=== PATIENT | male | born 1945 | race Caucasian/White ===

== ENCOUNTER → 2017-02-25 | Outpatient (CLI) | payer OTHER | LOC: CAT 09:46 | DX: R91.1 Solitary pulmonary nodule (principal) ==

== ENCOUNTER → 2019-09-19 | Outpatient (CLI) | payer OTHER | LOC: SJCVC 14:28 | PROVIDERS: ATTEND Internal Medicine Cardiovascular Disease | DX: I21.19 ST elevation (STEMI) myocardial infarction involving other coronary artery of inferior wall (principal); I45.10 Unspecified right bundle-branch block; I10 Essential (primary) hypertension; I25.10 Atherosclerotic heart disease of native coronary artery without angina pectoris; E78.00 Pure hypercholesterolemia, unspecified; I44.1 Atrioventricular block, second degree; R94.31 Abnormal electrocardiogram [ECG] [EKG] ==

== ENCOUNTER → 2019-09-26 | Outpatient (CLI) | payer OTHER | LOC: SJCVC 11:39 | PROVIDERS: ATTEND Internal Medicine Cardiovascular Disease | DX: Z51.81 Encounter for therapeutic drug level monitoring (principal) ==

== ENCOUNTER → 2020-06-25 | Outpatient (CLI) | payer OTHER ==
[~2020-06-25] MED LIST: ASA81BEC PO; CENTRUM SILVER1 EAC4 PO; FISH OIL 1,0001 EAC9 PO; FLONASE 0.05%50 MCG NARES; LIPITOR 10 MG10 M1 PO; LISINOPRIL10 MG PO; MELATONIN10 M3 PO; VALERIAN ROOT500 MG PO; XARELTO20 MG PO
== END ==
LOC: SJCVCIMAG 09:14
PROVIDERS: ATTEND Internal Medicine Cardiovascular Disease
DX: I08.3 Combined rheumatic disorders of mitral, aortic and tricuspid valves (principal); R94.31 Abnormal electrocardiogram [ECG] [EKG]; I45.10 Unspecified right bundle-branch block; I11.9 Hypertensive heart disease without heart failure; I49.9 Cardiac arrhythmia, unspecified; I25.10 Atherosclerotic heart disease of native coronary artery without angina pectoris; R93.1 Abnormal findings on diagnostic imaging of heart and coronary circulation; E78.00 Pure hypercholesterolemia, unspecified; I44.1 Atrioventricular block, second degree; I48.92 Unspecified atrial flutter; J44.9 Chronic obstructive pulmonary disease, unspecified; G47.33 Obstructive sleep apnea (adult) (pediatric); Z79.899 Other long term (current) drug therapy; Z87.891 Personal history of nicotine dependence

== ENCOUNTER → 2020-07-02 | Outpatient (CLI) | payer OTHER | LOC: SJCVC 15:48 | PROVIDERS: ATTEND Internal Medicine Cardiovascular Disease | DX: R94.31 Abnormal electrocardiogram [ECG] [EKG] (principal); I45.10 Unspecified right bundle-branch block; I48.3 Typical atrial flutter; G47.33 Obstructive sleep apnea (adult) (pediatric); I10 Essential (primary) hypertension; E78.00 Pure hypercholesterolemia, unspecified; I25.10 Atherosclerotic heart disease of native coronary artery without angina pectoris; J44.9 Chronic obstructive pulmonary disease, unspecified; Z99.89 Dependence on other enabling machines and devices; Z79.899 Other long term (current) drug therapy; Z87.891 Personal history of nicotine dependence ==

== ENCOUNTER → 2020-07-11 | Outpatient (CLI) | payer OTHER | LOC: LAB 10:05 | PROVIDERS: ATTEND Internal Medicine Cardiovascular Disease | DX: Z01.812 Encounter for preprocedural laboratory examination (principal); Z20.822 Contact with and (suspected) exposure to COVID-19 ==

== ENCOUNTER 2020-07-16 06:31 | Observation (INO) | payer OTHER ==
[~2020-07-16] VITALS: Ht 167.6 cm; Wt 84.4 kg
--- NOTE | ~2020-07-16 | P ---
[facility] [place] [address] PROCEDURE REPORT Name: SHIRLEY TORRES Room #: 202-P [facility] Bandar Adamson#: [id number] Admission: 07/16/20 Attend Phys: Shun Johnson MD Discharge: 07/17/20 Date of : 49 Report #: [id number] THIS REPORT FOR: cc: Maldonado Rodriguez MD, Christopher B. MD Couchonnal, Luis F. MD ~ PREOPERATIVE DIAGNOSES: 1. Atrial flutter. 2. High degree AV block. POSTOPERATIVE DIAGNOSES: 1. Atrial flutter. 2. Sick sinus syndrome. 3. Complete heart block. PROCEDURES PERFORMED: 1. SVT ablation, CPT code 28064. 2. EP with left atrial pacing and recording, CPT code 55847. 3. Intracardiac echo, CPT code 50069. 4. 3D mapping, CPT code 47656. 5. Dual-chamber pacemaker implantation, CPT code 87302. HISTORY: The patient is a 75-year-old with cavotricuspid isthmus dependent flutter as well as a bradycardic ventricular response on no AV shoaib blocking agents. He is here for ablation of his atrial flutter and possible pacemaker implantation if there is evidence of a significant AV shoaib disease. ANESTHESIA: The patient underwent MAC anesthesia with no anesthesia related complications. DESCRIPTION OF PROCEDURE: The patient underwent informed consent. We discussed the details of the procedure including the risks, which include but not limited to bleeding, vascular damage, stroke, FL, damage to sun'aq conduction system as well as pneumothorax and infection. He understood these risks and is willing to proceed. The patient was brought to EP laboratory in a fasting, non-sedated state and prepped and draped in sterile fashion. I injected lidocaine at the right groin region and then obtained access to the right femoral vein x 3. I placed an 8, 9 and 7-Vincentian short sheath using the modified Seldinger technique. Next, under fluoroscopy, a decapolar catheter was placed in the coronary sinus and ICE catheter was placed in the right atrium. At baseline, the patient was in atrial flutter with an atrial cycle length of 360 milliseconds in a proximal to distal activation along the decapolar catheter. The ventricular cycle length was 1470 milliseconds with a QRS duration of 145 milliseconds with a right bundle branch morphology, QT interval of 530 milliseconds and an HV interval of 63 [facility] [address] [place] [address] PROCEDURE REPORT Name: SHIRLEY TORRES Room #: 202-P [facility] Bandar Adamson#: [id number] Admission: 07/16/20 Attend Phys: Shun Johnson MD Discharge: 07/17/20 Date of : 49 Report #: [id number] milliseconds. This was suggestive of advanced Infra-Hisian disease. Next, I placed an 8 mm ablation catheter into the right atrium and I created a detailed 3D geometry of the right atrium and an activation map of the atrial flutter. This activation map was consistent with a counterclockwise typical atrial flutter. Using intracardiac ultrasound, I created a detailed 3D geometry of the cavotricuspid isthmus and I also visualized the left atrium, which showed two left and two right pulmonary veins and a thin interatrial septum: There was no pericardial effusion either. As such, a diagnosis of typical atrial flutter was made. Next SVT ablation was performed. I placed a RAMP sheath and placed my 8 mm ablation catheter into this RAMP sheath and ablation was performed at 70 collazo and 60 degrees at 6 o'clock along the cavotricuspid isthmus. Of note, there was very fractionated atrial electrograms throughout this isthmus and with ablation, the atrial flutter terminated after about 45 seconds of ablation and I was still predominantly on the proximal third of the isthmus. I continued ablating until I fell into the inferior vena cava. I then checked and there was evidence of bidirectional block with transisthmus conduction time of 225 milliseconds. POST-ABLATION TESTING: Post-ablation testing demonstrated persistence of bidirectional block for 30 minutes. An EP study was performed and in sinus rhythm, the sinus cycle length was 1360 milliseconds. The patient did have some evidence of sick sinus syndrome with long sinus node recovery times when it come off atrial pacing. The QRS duration was 145 milliseconds, the QT interval was 530 milliseconds and with atrial burst pacing, there was evidence of AV block at 700 milliseconds. Based on these findings of complete heart block, I decided to proceed with pacemaker implantation. DUAL-CHAMBER PACEMAKER IMPLANTATION: We pulled catheters and sheaths from his right groin and obtained hemostasis and then the patient underwent a venogram showing patency of left axillary vein and the patient received IV antibiotics. Next, I injected lidocaine at the incision site. An incision was made, pocket was created over the prepectoral fascia and access was obtained twice to left axillary vein using the extrathoracic approach. Sheaths were positioned using the modified Seldinger technique and then leads were positioned into the right ventricular mid septum and right atrial appendage, both with adequate pacing and sensing thresholds. The device was connected to the leads. Tug test performed. Leads were sutured to the prepectoral fascia using Ethibond suture and then the pocket was irrigated with vancomycin. The pocket was closed in 2 layers. Surgical glue was placed to outer skin layer. The patient awoke neurologically and hemodynamically intact. No complications and no significant bleeding. The implanted pacemaker was Medtronic model # W3DR01, serial #[id number]. Atrial lead was a 5076, 52 cm, serial #[id number], RV lead was a 5076, 58 cm, serial #[id number]. The P waves were 2 millivolts, pacing impedance 570 ohms, pacing threshold 0.7 volts at 0.4 milliseconds. RV lead demonstrated R waves of 8 [facility] [address] [place] [place] [address] PROCEDURE REPORT Name: SHIRLEY TORRES Room #: 202-P [facility] Bandar Adamson#: [id number] Admission: 07/16/20 Attend Phys: Shun Johnson MD Discharge: 07/17/20 Date of : 49 Report #: [id number] millivolts, pacing impedance of 684 ohms, pacing threshold 0.7 volts at 0.4 milliseconds. The device was programmed to the DDDR 60-130 mode. CONCLUSIONS: 1. Successful ablation of cavotricuspid isthmus dependent flutter with evidence of bidirectional block. 2. Evidence of sick sinus syndrome. 3. Evidence of severe AV shoaib and Infra-Hisian conduction disease. 4. Successful dual-chamber pacemaker implantation. 5. Satisfactory atrial and ventricular pacing and sensing thresholds. By: 1346 [id number] Shun Johnson MD /nt
[2020-07-16] MEDS ORDERED: LISINOPRIL10 MG PO (07:10)
[2020-07-16] MEDS ORDERED: XARELTO20 MG PO (07:11)
[2020-07-16] MEDS ORDERED: LIPITOR 10 MG10 M1 PO (07:11)
[2020-07-16] MEDS ORDERED: ASA81BEC PO (07:11)
[2020-07-16] MEDS ORDERED: CENTRUM SILVER1 EAC4 PO (07:12)
[2020-07-16] MEDS ORDERED: FISH OIL 1,0001 EAC9 PO (07:12)
[2020-07-16] MEDS ORDERED: VALERIAN ROOT500 MG PO (07:13)
[2020-07-16] MEDS ORDERED: MELATONIN10 M3 PO (07:13)
[2020-07-16] MEDS ORDERED: FLONASE 0.05%50 MCG NARES (07:14)
[2020-07-16 07:32] VITALS: BP 169/72
[2020-07-16 07:34] LABS: ABSOLUTE NEUTROPHILS 3.8 thou/uL (1.4-8.2); BASOPHILS 0.7 % (0.0-2.0); EOSINOPHILS 6.3 % (0.0-3.0); HEMATOCRIT 42.9 % (42.0-52.0); HEMOGLOBIN 14.3 gm/dL (14.0-18.0); LYMPHOCYTES 27.1 % (24.0-44.0); MCH 29.4 pg (26.0-34.0); MCHC 33.3 g/dL (28.0-37.0); MCV 88.4 fL (80.0-100.0); MONOCYTES 10.2 % (1.0-8.0); PLATELET COUNT 267 thou/uL (150-400); POLYS 55.7 % (36.0-66.0); RBC 4.85 mil/uL (4.50-6.00); RDW 12.9 % (10.5-14.5); WBC 6.8 thou/uL (4.0-11.0)
[2020-07-16 07:46] LABS: POTASSIUM 3.5 mmol/L (3.5-5.1)
[2020-07-16 07:53] LABS: TOTAL BILIRUBIN 0.8 mg/dL (0.2-1.0); TOTAL PROTEIN 8.1 g/dL (6.4-8.2)
[2020-07-16 08:09] LABS: APTT 25.7 Seconds (24.5-32.8); INR 1.1; PROTIME 11.4 Seconds (9.3-11.4)
--- NOTE | 2020-07-16 17:56 | NUR ---
PT. UP ON UNIT OFF BEDREST AT 8PM TONIGHT. RIGHT GROIN SITE IS VENOUS AND NO HEMATOMA, SOFT TO TOUCH. DENIES ANY CHEST PAIN. PACEMAKER SITE HAS A DRESSING ON IT, C,D,I . PACING IS 100% ATRIAL, 80% NOW RATE CONTROLLED AND NO ECTOPY NOTED.
[2020-07-16 19:14] VITALS: BP 128/65
[2020-07-16 23:06] VITALS: BP 172/77
[2020-07-17 04:00] VITALS: BP 150/75
--- NOTE | 2020-07-17 04:50 | NUR ---
PT S/P PACEMAKER YESTERDAY. ALERT AND ORIENTED. VPACED ON THE MONITOR. DENIES PAIN. VITALS STABLE. D/C THIS AM, WILL CONTINUE TO MONITOR.
[2020-07-17 08:21] VITALS: BP 142/66
[2020-07-17 10:20] VITALS: BP 142/66
--- NOTE | 2020-07-17 12:05 | NUR ---
1000- D/C PAPER WORK GIVEN TO PT WELL DRUG INFORMATION SHEET AND PACEMAKER CARE SHEET. PT WAS ALREADY GIVEN SAMPLES OF XERELTO FROM [facility].
--- NOTE | 2020-07-18 13:48 | D ---
[facility] [place] [address] DISCHARGE SUMMARY Name: SHIRLEY TORRES Room #: 202-P [facility] Bandar Adamson#: [id number] Admission: 07/16/20 Attend Phys: Shun Johnson MD Discharge: 07/17/20 Date of : 49 Report #: [id number] THIS REPORT FOR: cc: Maldonado Rodriguez MD, Christopher B. MD Couchonnal,Shun Tan MD ~ DATE OF SERVICE: 07/16/2020 DISCHARGE DIAGNOSES: 1. Typical atrial flutter. 2. Complete heart block. PROCEDURES PERFORMED: 1. Atrial flutter ablation. 2. Dual-chamber pacemaker implantation. HISTORY: The patient is a 75-year-old who I recently saw for atrial flutter. He also has underlying ventricular bradycardia despite being on no AV shoaib blocking agents. The patient was here for atrial flutter ablation and if there was evidence of heart block, we would go ahead and implant a pacemaker at the same time. The ablation was successful with termination of his atrial flutter with bidirectional block. An EP study did show that he had a high-degree AV block and complete heart block with atrial pacing. Therefore, he underwent dual-chamber pacemaker implantation. There were no procedure related complications. HOSPITAL COURSE: The patient was monitored in the CCU overnight and did well. On the day of discharge, he denied any chest pain, shortness of breath, fevers or chills. PHYSICAL EXAMINATION: GENERAL: No acute distress. HEART: Regular rate and rhythm. No murmurs, rubs or gallops. LUNGS: Clear to auscultation bilaterally. ABDOMEN: Soft, nontender. His incision was healing nicely with no hematoma or ecchymosis. His groin showed no hematoma. Device interrogation showed normal device function. Chest x-ray showed no acute process. As such, he was deemed stable for discharge home. He was given a dose of Xarelto prior to discharge and instructed to resume his Xarelto tomorrow evening. He will continue his other medications. [address] [address] DISCHARGE SUMMARY Name: SHIRLEY TORRES Room #: 202-P [facility] Bandar Adamson#: [id number] Admission: 07/16/20 Attend Phys: Shun Johnson MD Discharge: 07/17/20 Date of : 49 Report #: [id number] Discharge instructions were reviewed and the patient will follow up in 7-10 days for a site check. <ELECTRONICALLY SIGNED> By: Shun Johnson MD 07/18/20 1348 0828 0838 Shun Johnson MD /nt
== END 2020-07-17 11:28 | disposition home or self-care (01) ==
LOC: CATH 06:31 → 2N 16:08
PROVIDERS: ADMIT Internal Medicine Cardiovascular Disease; ATTEND Internal Medicine Cardiovascular Disease
DX: I48.92 Unspecified atrial flutter (principal); I44.2 Atrioventricular block, complete; I49.5 Sick sinus syndrome
CPT/HCPCS: 62110; 62900; 70005

== ENCOUNTER → 2020-09-24 | Outpatient (CLI) | payer OTHER | LOC: SJCVC 16:13 | PROVIDERS: ATTEND Internal Medicine Cardiovascular Disease | DX: I48.92 Unspecified atrial flutter (principal); I44.2 Atrioventricular block, complete; I25.10 Atherosclerotic heart disease of native coronary artery without angina pectoris; E78.00 Pure hypercholesterolemia, unspecified; I10 Essential (primary) hypertension; G47.33 Obstructive sleep apnea (adult) (pediatric); Z95.0 Presence of cardiac pacemaker; Z79.899 Other long term (current) drug therapy; Z88.2 Allergy status to sulfonamides; Z87.891 Personal history of nicotine dependence; Z72.89 Other problems related to lifestyle ==

== ENCOUNTER → 2021-01-14 | Outpatient (CLI) | payer OTHER | LOC: SJCVC 13:16 | PROVIDERS: ATTEND Internal Medicine Cardiovascular Disease | DX: R94.31 Abnormal electrocardiogram [ECG] [EKG] (principal); I45.4 Nonspecific intraventricular block; R42 Dizziness and giddiness; I25.10 Atherosclerotic heart disease of native coronary artery without angina pectoris; I48.92 Unspecified atrial flutter; I10 Essential (primary) hypertension; G47.33 Obstructive sleep apnea (adult) (pediatric); J44.9 Chronic obstructive pulmonary disease, unspecified; Z95.0 Presence of cardiac pacemaker; Z88.2 Allergy status to sulfonamides; Z79.82 Long term (current) use of aspirin; Z79.899 Other long term (current) drug therapy; Z87.891 Personal history of nicotine dependence ==

== ENCOUNTER → 2021-03-26 | Outpatient (CLI) | payer OTHER | LOC: SJCVCIMAG 09:41 | PROVIDERS: ATTEND Internal Medicine Cardiovascular Disease | DX: I08.3 Combined rheumatic disorders of mitral, aortic and tricuspid valves (principal); I25.10 Atherosclerotic heart disease of native coronary artery without angina pectoris; I48.0 Paroxysmal atrial fibrillation; I10 Essential (primary) hypertension; E78.00 Pure hypercholesterolemia, unspecified; Z88.5 Allergy status to narcotic agent; Z79.82 Long term (current) use of aspirin; Z79.899 Other long term (current) drug therapy; Z72.89 Other problems related to lifestyle; Z87.891 Personal history of nicotine dependence ==

== ENCOUNTER → 2021-04-08 | Outpatient (CLI) | payer OTHER | LOC: SJCVC 14:00 | PROVIDERS: ATTEND Internal Medicine Cardiovascular Disease | DX: I48.0 Paroxysmal atrial fibrillation (principal); J44.9 Chronic obstructive pulmonary disease, unspecified; I65.29 Occlusion and stenosis of unspecified carotid artery; I10 Essential (primary) hypertension; E78.00 Pure hypercholesterolemia, unspecified; G47.33 Obstructive sleep apnea (adult) (pediatric); Z95.0 Presence of cardiac pacemaker; Z79.899 Other long term (current) drug therapy; Z88.2 Allergy status to sulfonamides; Z87.891 Personal history of nicotine dependence; Z72.89 Other problems related to lifestyle ==

== ENCOUNTER → 2021-08-10 | Outpatient (CLI) | payer BC ==
[~2021-08-10] MED LIST changes: +FAMOTIDINE 20 M20 MG PO
== END ==
LOC: SJCVC 13:33
PROVIDERS: ATTEND Internal Medicine Cardiovascular Disease
DX: I44.7 Left bundle-branch block, unspecified (principal); I49.3 Ventricular premature depolarization; R94.31 Abnormal electrocardiogram [ECG] [EKG]; I25.10 Atherosclerotic heart disease of native coronary artery without angina pectoris; I10 Essential (primary) hypertension; E78.00 Pure hypercholesterolemia, unspecified; I48.92 Unspecified atrial flutter; R19.5 Other fecal abnormalities; J44.9 Chronic obstructive pulmonary disease, unspecified; G47.33 Obstructive sleep apnea (adult) (pediatric); Z88.5 Allergy status to narcotic agent; Z87.891 Personal history of nicotine dependence; Z79.899 Other long term (current) drug therapy; Z98.890 Other specified postprocedural states

== ENCOUNTER → 2021-08-12 | Outpatient (CLI) | payer BC | LOC: LAB 11:01 | PROVIDERS: ATTEND Student in an Organized Health Care Education/Training Program | DX: Z20.822 Contact with and (suspected) exposure to COVID-19 (principal) ==

== ENCOUNTER → 2021-08-14 | Outpatient (CLI) | payer BC ==
[~2021-08-14] VITALS: Ht 172.7 cm; Wt 83.9 kg
--- NOTE | 2021-08-16 10:58 | P ---
[facility] [place] [address] PROCEDURE REPORT Name: SHIRLEY TORRES Room #: REG FRANKLINRogelio Adamson#: [id number] Admission: 08/14/21 Attend Phys: Dilip Barber Discharge: Date of : 49 Report #: [id number] THIS REPORT FOR: cc: Maldonado Rodriguez MD, Christopher B. MD McElhinney, Christian C. MD ~ DATE OF SERVICE: 08/14/2021 PROCEDURE PERFORMED: Colonoscopy with polypectomies. HISTORY OF PRESENT ILLNESS: The patient is a 76-year-old male who reports intermittent bright red blood per rectum. Denies any abdominal pain or anorectal pain. Denies any constipation or diarrhea in general. Last colonoscopy 2013 was negative other than diverticulosis and small hemorrhoids. No family history of colon cancer. DESCRIPTION OF PROCEDURE: The risks and benefits of the procedure were explained to the patient, those risks including but not limited to bleeding, perforation and the risk of sedation. He understood these risks and gave informed consent. Sedation was given using propofol per anesthesia. Next, a digital rectal exam was initially performed, which was normal. Next, using a standard Olympus colonoscope, the scope was placed in the patient's anus and advanced under direct vision to the cecum. The overall prep was excellent. The cecum and ileocecal valve were normal in appearance. The ascending and transverse colon were normal. Multiple diverticula were noted throughout the descending and sigmoid colon. Also in the sigmoid colon was a 4 mm sessile polyp. This was removed with cold forceps. On retroflexion in the distal rectum, an 8 mm pedunculated polyp was noted. This was removed by snare cautery. Also noted were small nonbleeding internal hemorrhoids. Close examination of the anal canal showed small internal and external hemorrhoids. No evidence of bleeding. No evidence of anal fissure. The scope was then withdrawn and the procedure terminated. The patient tolerated the procedure well. IMPRESSION: 1. Left-sided diverticulosis. 2. Sigmoid colon polyp. 3. Rectal polyp, may be source of recent bright red blood per rectum; however, internal and external hemorrhoids, also a possibility. RECOMMENDATIONS: 1. Await biopsy results. 2. Repeat colonoscopy in 5 years. 3. Analpram on a p.r.n. basis. [address] [address] PROCEDURE REPORT Name: SHIRLEY TORRES Room #: REG SEAN Adamson#: [id number] Admission: 08/14/21 Attend Phys: Dilip Barber Discharge: Date of : 49 Report #: [id number] Thank you for allowing me to participate in his care. <ELECTRONICALLY SIGNED> By: Dilip Narayan MD 08/16/21 1058 1033 00 Dilip Narayan MD /nt
--- NOTE | 2021-08-18 11:08 | PATH ---
[facility] [place] [address] PATHOLOGY RPT PROCEDURE Name: SHIRLEY TORRES Room #: REG SEAN Adamson#: [id number] Admission: 08/14/21 Date of : 49 Discharge: Report #: [id number] Path Case #: [id number] [facility] Accession Number: [id number] . 01 Material submitted: . PART A: sigmoid colon - SIGMOID COLON POLYP PART B: rectum - RECTAL POLYP . 01 Clinical history: . COLONOSCOPY BLOODY STOOLS . 02 Diagnosis: A. Colon biopsy, sigmoid colon polyp: - Consistent with hyperplastic polyp/prominent mucosal fold. . B. Colorectal biopsy, rectal polyp: - Tubular adenoma. . (JUDYM:shaina; 08/17/2021) [facility] 08/17/2021 1224 Local . 02 Comment: There is no high grade dysplasia or evidence of malignancy. . (JPM:mmprosper; 08/17/2021) . 02 Electronically signed: . [place] Jorgensen MD, Pathologist NPI- [id number] . 01 Gross description: . A. Received in formalin labeled "Shirley Torres, sigmoid colon polyp" is a fragment of sanchez-brown soft tissue measuring 0.4 x 0.3 x 0.2 cm. The specimen is submitted entirely in A1. . B. Received in formalin labeled "Shirley Torres rectal polyp" is a fragment of sanchez-brown soft tissue measuring 0.9 x 0.7 x 0.4 cm. The surgical resection margin is inked black. The specimen is submitted entirely in B1. ([facility]; 08/15/2021) GZA/GZA 08/15/2021 1621 Local . 02 Pathologist provided ICD-10: D12.8, Z12.11, K92.1 . 02 CPT . 509769, [id number] [address] [address] PATHOLOGY RPT PROCEDURE Name: SHIRLEY TORRES Room #: REG CLI Juan Diego#: [id number] Admission: 08/14/21 Date of : 49 Discharge: Report #: [id number] Path Case #: [id number] Specimen Comment: A courtesy copy of this report has been sent to [phone], [phone] Specimen Comment: [id number] Specimen Comment: Report sent to / DR AHUJA Specimen Comment: A duplicate report has been generated due to demographic updates. Performed at: 01 [facility] [address] [facility] [address], [place] [id number] MD Jackson Leung MD Phone: [phone] Performed at: 02 [facility] [address] [place], [place] [id number] MD Houston Jorgensen MD Phone: [phone]
== END | disposition home or self-care (01) ==
LOC: GI 08:13
PROVIDERS: ATTEND Specialist
DX: K92.1 Melena (principal); D12.8 Benign neoplasm of rectum; K57.30 Diverticulosis of large intestine without perforation or abscess without bleeding; K64.8 Other hemorrhoids; K64.4 Residual hemorrhoidal skin tags; I10 Essential (primary) hypertension; I25.10 Atherosclerotic heart disease of native coronary artery without angina pectoris; I48.92 Unspecified atrial flutter; G47.33 Obstructive sleep apnea (adult) (pediatric); E78.5 Hyperlipidemia, unspecified; K21.9 Gastro-esophageal reflux disease without esophagitis; Z98.890 Other specified postprocedural states; Z79.899 Other long term (current) drug therapy; Z87.891 Personal history of nicotine dependence; Z95.0 Presence of cardiac pacemaker; Z88.2 Allergy status to sulfonamides
CPT/HCPCS: 62110; 62900